=== PATIENT | female | born 1990 | race Two or more races ===

== ENCOUNTER → 2019-06-17 | Outpatient (CLI) | payer OTHER | END | disposition home or self-care (01) | LOC: PRENATAL 10:51 | DX: O26.843 Uterine size-date discrepancy, third trimester (principal); O36.8131 Decreased fetal movements, third trimester, fetus 1; O26.853 Spotting complicating pregnancy, third trimester; O43.93 Unspecified placental disorder, third trimester; Z34.03 Encounter for supervision of normal first pregnancy, third trimester ==

== ENCOUNTER 2019-07-04 05:38 | Inpatient (IN) | payer OTHER ==
[~2019-07-04] VITALS: Ht 165.1 cm; Wt 82.1 kg
== END 2019-07-06 13:59 | disposition home or self-care (01) | DRG 807 ==
LOC: OB/GYN 05:38 → LDR 05:38 → OB/GYN 18:55
PROVIDERS: ADMIT Obstetrics & Gynecology
PROC: 10E0XZZ Delivery of Products of Conception, External Approach (ICD-10-PCS; principal; 2019-07-04)
PROC: 0UQGXZZ Repair Vagina, External Approach (ICD-10-PCS; 2019-07-04)
PROC: 3E033VJ Introduction of Other Hormone into Peripheral Vein, Percutaneous Approach (ICD-10-PCS; 2019-07-04)
PROC: 10907ZC Drainage of Amniotic Fluid, Therapeutic from Products of Conception, Via Natural or Artificial Opening (ICD-10-PCS; 2019-07-04)
PROC: 4A1HXCZ Monitoring of Products of Conception, Cardiac Rate, External Approach (ICD-10-PCS; 2019-07-04)
DX: O71.4 Obstetric high vaginal laceration alone (principal); Z37.0 Single live birth; Z3A.37 37 weeks gestation of pregnancy